=== PATIENT | female | born 1965 | race African-American/Black ===

== ENCOUNTER 2020-11-10 20:41 | Emergency (ER) | payer OTHER ==
[~2020-11-10] VITALS: Ht 157.5 cm; Wt 77.1 kg
[2020-11-10 22:39] LABS: Basophils # (auto) 0 10 ^3/uL (0-0.2); Basophils % (auto) 0.3 % (0.0-2.0); Eosinophils # (auto) 0 10 ^3/uL (0-0.8); Eosinophils % (auto) 0.2 % (0.0-7.0); Hematocrit 39.6 % (36.0-46.0); Hemoglobin 13.2 g/dL (12.2-16.2); Lymphocytes # (auto) 2.9 10 ^3/uL (0.4-5.4); Lymphocytes % (auto) 31.3 % (10.0-50.0); Mean Corpuscular Hemoglobin 27.1 pg (28.0-32.0); Mean Corpuscular Hgb Conc. 33.2 g/dL (32.0-36.0); Mean Corpuscular Volume 81.4 fL (80.0-100.0); Monocytes # (auto) 0.6 10 ^3/uL (0-1.3); Monocytes % (auto) 6.7 % (0.0-12.0); Neutrophils # (auto) 5.8 10 ^3/uL (1.6-8.6); Neutrophils % (auto) 61.5 % (37.0-80.0); Nucleated Red Blood Cells % 0.2 %; Red Blood Cells 4.87 10^6/uL (4.0-5.20); White Blood Cell 9.4 10^3/uL (4.4-10.8)
[2020-11-10 22:57] LABS: Albumin 3.2 g/dL (3.4-5.0); Anion Gap 7 (5-15); Blood Urea Nitrogen 19 mg/dL (7-18); Calcium 8.7 mg/dL (8.5-10.1); Carbon Dioxide 24 mmol/L (21-32); Chloride 104 mmol/L (98-107); Glucose 111 mg/dL (74-106); Lipase 130 U/L (73-393); Potassium 3.5 mmol/L (3.5-5.1); Sodium 135 mmol/L (136-145)
[2020-11-10 23:00] LABS: Alanine Aminotransferase 17 U/L (13-56); Alkaline Phosphatase 57 U/L (45-117); Aspartate Aminotransferase 12 U/L (15-37); BUN/Creatinine Ratio 20.7; Bilirubin, Total 0.3 mg/dL (0.2-1.0); GFR African American 82 mL/min; GFR Non-African American 68 mL/min; Total Protein 7.8 g/dL (6.4-8.2)
[2020-11-11] MEDS ORDERED: MORPHINE SULFATE 4 MG/ML SYR/VIAL IV ONE (01:30)
[2020-11-11] MEDS ORDERED: ONDANSETRON HCL 4 MG/2 ML VIAL IV ONE (01:30)
[2020-11-11] MEDS ORDERED: IOHEXOL 300 MG/ML 100ML BOTTLE IJ ONE (01:31)
[2020-11-11] MEDS ORDERED: metroNIDAZOLE 500MG/100ML 100 ML IV ONE (08:45)
[2020-11-11] MEDS ORDERED: SODIUM CHLORIDE 0.9% 1,000 ML IV ONE ×2 (08:45)
[2020-11-11] MEDS ORDERED: cefTRIAXone 1GM/50ML D5W 50 ML IV ONE (08:45)
[2020-11-11 10:30] VITALS: BP 138/72
== END 2020-11-11 10:24 | disposition home or self-care (01) ==
LOC: ER 20:41
DX: K52.9 Noninfective gastroenteritis and colitis, unspecified (principal); F17.210 Nicotine dependence, cigarettes, uncomplicated; I10 Essential (primary) hypertension; Z98.890 Other specified postprocedural states
CPT/HCPCS: 36415; 74177; 80053; 83605; 83690; 84484; 85025; 87040; 93005; 96365; 96366; 96368; 96375; 99285; J0696; J2270; J2405; J3490; J7030; Q9967